=== PATIENT | female | born 1985 | race Caucasian/White ===

== ENCOUNTER 2017-11-18 04:01 | Inpatient (IN) | payer MEDICAID ==
[2017-11-18 04:21] LABS: APPEARANCE,URINE CLEAR; BILIRUBIN,URINE NEGATIVE (NEGATIVE); COLOR,URINE STRAW; GLUCOSE, URINE NEGATIVE (NEGATIVE); KETONES,URINE NEGATIVE (NEGATIVE); LEUKOCYTE ESTERASE,URINE NEGATIVE (NEGATIVE); NITRITE,URINE NEGATIVE (NEGATIVE); PROTEIN,URINE NEGATIVE (NEGATIVE); URINE SPECIFIC GRAVITY 1.003; UROBILINOGEN,URINE NEGATIVE mg/dL (<2.0)
[2017-11-18 04:37] LABS: URINE AMPHETAMINES SCREEN NEGATIVE; URINE BARBITURATES SCREEN NEGATIVE; URINE BENZODIAZEPINES SCREEN NEGATIVE; URINE COCAINE SCREEN NEGATIVE; URINE MARIJUANA (THC) SCREEN NEGATIVE; URINE METHADONE SCREEN NEGATIVE; URINE PHENCYCLIDINE SCREEN NEGATIVE
[2017-11-18] MEDS ORDERED: LIDOCAINE 1% INJ-PF (10 MG/ML) 30 ML SDV ONE (05:38)
[2017-11-18] MEDS ORDERED: MISOPROSTOL 0.2 MG TABLET ONE (05:38)
[2017-11-18] MEDS ORDERED: OXYTOCIN/NORMAL SALINE 0 UNIT/0 ML RTUINJ ONE (05:39)
[2017-11-18 06:37] LABS: ABSOLUTE BASOPHILS # (AUTO) 0.1 10^3/uL (0.0-0.2); ABSOLUTE EOSINOPHILS # (AUTO) 0.2 10^3/uL (0.0-0.6); ABSOLUTE LYMPHOCYTES (AUTO) 2.1 10^3/uL (0.5-4.7); ABSOLUTE MONOCYTES (AUTO) 1.1 10^3/uL (0.1-1.4); BASOPHILS % (AUTO) 0.6 % (0-2); EOSINOPHILS % (AUTO) 1.1 % (0-6); LYMPHOCYTES % (AUTO) 14.7 % (13-45); MEAN CORPUSCULAR HEMOGLOBIN 30.7 pg (27.0-33.4); MEAN CORPUSCULAR HGB CONC 34.3 g/dL (32.0-36.0); MEAN CORPUSCULAR VOLUME 90 fl (80-97); MONOCYTES % (AUTO) 7.6 % (3-13); PLATELET COUNT 341 10^3/uL (150-450); RED CELL DISTRIBUTION WIDTH 13.2 % (11.5-14.0); TOTAL CELLS COUNTED % (AUTO) 100 %; WHITE BLOOD COUNT 14.5 10^3/uL (4.0-10.5)
--- NOTE | 2017-11-18 07:41 | Admission Physical ---
Datetime Report Generated by CPN: 11/18/2017 07:41 CURRENT ADMISSION Chief Complaint: Uterine Contractions Indication for Induction: Not Applicable Admit Impression : Term, Intrauterine ; Active Labor Admit Plan: Admit to Unit; Initiate Labor Protocol ALLERGIES Medication Allergies: Yes Medication Allergies: Penicillins/[place] (11/18/2017) Latex: No Latex Allergies OBSTETRICAL HISTORY EDC: 11/30/2017 00:00 : 4 Para: 2 Term: 1 : 1 Cesareans: 0 Gestational Diabetes: No Rh Sensitization: No Incompetent Cervix: No YUMIKO: No Infertility: No ART Treatment: No Uterine Anomaly: No IUGR: No Hx Previous C/S: No Macrosomia: No Hx Loss/Stillborn: No PIH: No Hx : No Placenta Previa/Abruption: No Depression/PP Depression: No PTL/PROM: No Post Hemorrhage: No Current Procedures: Ultrasound; NST Obstetrical History Comments: g1-EAB g2- at 33 weeks 4lbs 5oz female bill bernardo sequence no 22 with abnormality g3 40 weeks 7lbs 5oz female g4- current SEE RECORDS Alcohol: No Marijuana : No Cocaine: No Other Illicit Drugs: No Cigarettes: Never Smoker. [id number] MEDICAL HISTORY Diabetes: No Blood Transfusion: No Pulmonary Disease (Asthma, TB): No Breast Disease: No Hypertension: No Ag Service Manager Surgery: No Heart Disease: No Hosp/Surgery: No Autoimmune Disorder: No Anesthetic Complications: No Kidney Disease: No Abnormal Pap Smear: No Neuro/Epilepsy: No Psychiatric Disorders: No Other Medical Diseases: No Hepatitis/Liver Disease: No Significant Family History: No Varicosities/Phlebitis: No Trauma/Violence : No Thyroid Dysfunction: Yes Medical History Comments: history of hypothyroidism but has resolved INFECTIOUS HISTORY Gonorrhea: No Genital Herpes: No Chlamydia: No Tuberculosis: No Syphilis: No Hepatitis: No HIV/AIDS Exposure: No Rash or Viral Illness: No HPV: No PHYSICAL EXAM General: Normal HEENT: Normal Neurologic: Normal Thyroid: Normal Heart: Normal Lungs: Normal Breast: Normal Back: Normal Abdomen: Normal Genitourinary Exam: Normal Extremities: Normal DTRs: Normal Pelvic Type: Adequate Vital Signs: Reviewed VAGINAL EXAM Dilatation: 6 Effacement: 75 Station: -1 MEMBRANES Pooling: Negative Membranes: Intact FETUS A EGA: 38.2 Monitoring: External US FHR- Baseline: 130 Variability: Moderate 6-25bpm Accelerations: 15X15 Decelerations: None FHR Category: Category I Estimated Weight (gm): 3400 Presentation: Vertex PLANS FOR LABOR AND DELIVERY Labor and Delivery: None Pain Management: Natural Feeding Preference: Breast Benefit of Breast Feed Discussed: Yes Circumcision: N/A INFORMED CONSENT Signature: with User ID: [email or web address]
[2017-11-18] MEDS ORDERED: OXYTOCIN/NORMAL SALINE 20 UNIT/1,000 ML RTUINJ ONE (08:59)
--- NOTE | 2017-11-18 09:03 | L&D Progress Notes ---
PROGRESS NOTES Datetime Report Generated by CPN: 11/18/2017 09:03 PROGRESS NOTE Impression: Arrest of Dilatation/Descent Procedures: Sterile Vag Exam Plan: Augmentation Vital Signs : Reviewed VAGINAL EXAM Dilatation: 6 Effacement: 100 Station: -1 MEMBRANES Pooling: Negative Membranes: Intact FETUS A FHR - Baseline: 140 Monitoring: External US Variability: Moderate 6-25bpm FHR Category: Category II FHR Comments: few subtle late decels with moderate variability : 38.2 Estimated Weight (gm): 3400 Presentation: Vertex SIGNATURE SIGNATURE: [id number];[id number] SIGNATURE: [id number] Assignment: Iram Martinez MD Signature: with User ID: [email or web address] : with User ID: [email or web address]
[2017-11-18] MEDS ORDERED: LIDOCAINE 2% JELLY 5 ML TUBE ONE (13:05)
--- NOTE | 2017-11-18 15:00 | Delivery Summary ---
Del Sum A-C Datetime Report Generated by CPN: 11/18/2017 14:59 DELIVERY PERSONNEL DELIVERY PERSONNEL: [id number] Delivery Doctor:: Tara Fitzgerald CNM Labor and Delivery Nurse:: Suhas Walker RN Nursery Nurse:: Reina Cline RN Admission Specialist/SLEEP MANAGER: Rosa Elena Gar, ST Admission Specialist/SLEEP MANAGER: Aure Goetz, STRIPPER AND TAPER Additional Personnel: : Sonam Johnson RN MATERNAL INFORMATION Delivery Anesthesia: None Medications After Delivery: Pitocin Bolus-Please Comment Maternal Complications: None Provider Comments: SVDVF over intact perineum. Infant vigorous, to mothers abd for skin to skin. Cord clamped and cut per FOB, 3VC noted. Placenta intact via watkins, FF immediately with minimal bleeding. Apars 8,9. Mother and stable upon leaving the room. LABOR SUMMARY EDC: 11/30/2017 00:00 No. Babies in Womb: 1 Attempted: No Labor Anesthesia: None LABOR INFORMATION Reason for Induction: Not Applicable Onset of Labor: 11/18/2017 04:16 Complete Dilatation: 11/18/2017 12:23 Other Ripening Agents: n/a Oxytocin: Augmentation Group B Beta Strep: neg Antibiotics # of Doses: 0 Antibiotics Time of Last Dose: n/a Name of Antibiotic Given: n/a Steroids Given: None Reason Steroids Not Administered: Not Applicable Other Reason Not Administered: n/a MEMBRANES Membranes Rupture Method: Spontaneous Rupture of Membranes: 11/18/2017 11:04 Length of Rupture (hr): 1.90 Amniotic Fluid Color: Light Meconium Amniotic Fluid Amount: Small Amniotic Fluid Odor: Normal STAGES OF LABOR Stage 1 hr: 8 Stage 1 min: 7 Stage 2 hr: 0 Stage 2 min: 35 Stage 3 hr: 0 Stage 3 min: 17 Total Time in Labor hr: 8 Total Time in Labor min: 59 VAGINAL DELIVERY Episiotomy: None Laceration #1: Periurethral Laceration Extension #1: First Degree Other Laceration: right labial Laceration Repair: Yes Laceration Repair Note: lidocaine jelly and 1%lidocaine 3.0 chromic skin reapproximated rt labia/periuretha CSECTION DELIVERY Primary Indication: N/A Secondary Indication: N/A BABY A INFORMATION Infant Delivery Date/Time: 11/18/2017 12:58 Method of Delivery: Vaginal Born in Route : No : N/A Forceps: N/A Vacuum Extraction: N/A Shoulder Dystocia : No PRESENTATION/POSITION BABY A Presentation: Cephalic Cephalic Presentation: Vertex Vertex Position: Left Occipital Anterior Breech Presentation: N/A PLACENTA INFORMATION BABY A Placenta Delivery Time : 11/18/2017 13:15 Placenta Method of Delivery: Spontaneous Placenta Status: Delivered SCORES BABY A Heart Rate 1 min: >100 bpm Resp Effort 1 min: Good Cry Reflex Irritability 1 min: Cough or Sneeze or Pulls Away Muscle Tone 1 min: Active Motion Color 1 min: Blue/Pale Resuscitation Effort 1 min: Tactile Stimulation SCORE 1 MIN: 8 Heart Rate 5 min: >100 bpm Resp Effort 5 min: Good Cry Reflex Irritability 5 min: Cough or Sneeze or Pulls Away Muscle Tone 5 min: Active Motion Color 5 min: Body [place], Extremities Blue Resuscitation Effort 5 min: Tactile Stimulation SCORE 5 MIN: 9 INFANT INFORMATION BABY A Gestational Age at Delivery: 38.2 Gestational Status: Early Term- 37- 38.6 Weeks Infant Outcome : Liveborn Infant Condition : Stable Infant Sex: Female IDENTIFICATION BABY A Verification Date/Time: 11/18/2017 13:28 ID Band Number: [id number] Mother's Name Verified: Yes Infant RN Verifying : D Bellavance RNC Additional Verifying Personnel: C [place] RN WEIGHT/LENGTH BABY A Infant Birthweight (gm): 3080 Infant Weight (lb): 6 Weight (oz): 13 Infant Length (in): 19.50 Infant Length (cm): 49.53 CORD INFORMATION BABY A No. Cord Vessels: 3 Nuchal Cord : Around Neck x1, Loose Cord Blood Taken: Yes-For Storage (Mom's Blood type +) Suction: None ASSESSMENT BABY A Skin to Skin: Yes Skin to Skin Time (min): 90 BABY B INFORMATION : N/A SIGNATURES Assignment: Iram Martinez MD Signature: with User ID: [email or web address] : with User ID: [email or web address] : I was personally available for consultation and serving as supervising physician for the MLP.
[2017-11-18] MEDS ORDERED: ZOLPIDEM TARTRATE 5 MG TABLET PO PRN (15:17)
[2017-11-18] MEDS ORDERED: MEASLES,MUMPS&RUBELLA VACC/PF 0.5 ML VIAL SUBCUT PRN (15:17)
[2017-11-18] MEDS ORDERED: BENZOCAINE/MENTHOL AEROSOL SPRAY 56 ML TOP PRN (15:17)
[2017-11-18] MEDS ORDERED: DIPH/PERTUSS(ACELL)/TETANUS VAC/PF 0.5 ML SYR (>=10YO) IM PRN (15:17)
[2017-11-18] MEDS ORDERED: OXYTOCIN/NORMAL SALINE 20 UNIT/1,000 ML RTUINJ IV PRN (15:17)
[2017-11-18] MEDS ORDERED: DIBUCAINE 1% OINTMENT 28 GM TP PRN (15:17)
[2017-11-18] MEDS ORDERED: IBUPROFEN 800 MG TABLET PO ONE (15:30)
[2017-11-18] MEDS: DOCUSATE SODIUM 100 MG CAPSULE PO SCH (18:13)
[2017-11-18] MEDS: FERROUS SULFATE 325 MG TABLET PO SCH (18:13)
[2017-11-18] MEDS: IBUPROFEN 800 MG TABLET PO SCH (21:10)
[2017-11-19 07:23] LABS: HEMATOCRIT 31.8 % (36.0-47.0); HEMOGLOBIN 10.7 g/dL (12.0-15.5); MEAN CORPUSCULAR HEMOGLOBIN 30.8 pg (27.0-33.4); MEAN CORPUSCULAR HGB CONC 33.8 g/dL (32.0-36.0); MEAN CORPUSCULAR VOLUME 91 fl (80-97); PLATELET COUNT 300 10^3/uL (150-450); RED BLOOD COUNT 3.48 10^6/uL (3.72-5.28); RED CELL DISTRIBUTION WIDTH 13.4 % (11.5-14.0); WHITE BLOOD COUNT 18.8 10^3/uL (4.0-10.5)
[2017-11-19] MEDS: IBUPROFEN 800 MG TABLET PO SCH ×3 (08:09→22:00)
--- NOTE | 2017-11-19 08:41 | PDOC PROGRESS REPORT ---
Subjective-OB Progress Note for:: 11/19/17 Physical Exam (OB) Vital Signs: Temp Pulse Resp BP Pulse Ox 98.0 F 65 18 104/54 L 100 11/18/17 19:35 11/18/17 19:35 11/18/17 19:35 11/18/17 19:35 11/18/17 19:35 Intake & Output 11/18/17 11/19/17 11/20/17 06:59 06:59 06:59 Intake Total 600 Balance 600 Weight 77.5 kg - PIH/Pre-Eclampsia DTR's: 2 + Clonus: Negative Headache: Absent Epigastric Pain: No Visual Changes: No - Lochia Lochia Amount: Scant < 10 ml Lochia Color: Rubra/Red - Abdomen Description: Soft, Round Hernia Present: No Bowel Sounds: Normoactive Flatus Presence: Present Stool: No Fundal Description: Firm, Midline Fundal Height: u/u - u/2 Objective-Diagnostic Laboratory: 11/19/17 06:50 11/19/17 06:50 WBC 18.8 H RBC 3.48 L Hgb 10.7 L Hct 31.8 L MCV 91 MCH 30.8 MCHC 33.8 RDW 13.4 Plt Count 300
[2017-11-19] MEDS: PRENATAL VITAMIN W DHA CAPSULE PO SCH (10:11)
[2017-11-19] MEDS: SENNOSIDES/DOCUSATE 8.6-50 MG 1 EACH TABLET PO SCH (10:11)
[2017-11-19] MEDS: FERROUS SULFATE 325 MG TABLET PO SCH ×2 (10:12→18:21)
[2017-11-19] MEDS: DOCUSATE SODIUM 100 MG CAPSULE PO SCH ×2 (10:12→18:21)
[2017-11-19 20:28] VITALS: BP 111/69
[2017-11-20] MEDS: IBUPROFEN 800 MG TABLET PO SCH (06:01)
[2017-11-20 07:33] LABS: HEMATOCRIT 31.9 % (36.0-47.0); HEMOGLOBIN 10.8 g/dL (12.0-15.5); MEAN CORPUSCULAR HEMOGLOBIN 30.9 pg (27.0-33.4); MEAN CORPUSCULAR HGB CONC 33.9 g/dL (32.0-36.0); MEAN CORPUSCULAR VOLUME 91 fl (80-97); PLATELET COUNT 292 10^3/uL (150-450); RED CELL DISTRIBUTION WIDTH 13.5 % (11.5-14.0); WHITE BLOOD COUNT 14.8 10^3/uL (4.0-10.5)
[2017-11-20] MEDS: SENNOSIDES/DOCUSATE 8.6-50 MG 1 EACH TABLET PO SCH (10:08)
[2017-11-20] MEDS: PRENATAL VITAMIN W DHA CAPSULE PO SCH (10:08)
[2017-11-20] MEDS: FERROUS SULFATE 325 MG TABLET PO SCH (10:08)
[2017-11-20] MEDS: DOCUSATE SODIUM 100 MG CAPSULE PO SCH (10:08)
[2017-11-20] MEDS ORDERED: MEDROXYPROGESTERONE ACET INJ 150 MG/1 ML VIAL IM ONE (10:30)
--- NOTE | 2017-11-20 10:42 | PDOC DISCHARGE SUMMARY ---
Final Diagnosis Discharge Date: 11/20/17 Discharge Data - Discharge Medication Home Medications: -U Capsule 1 tab PO DAILY 07/19/11 Procedures: NST - Diagnosis Test Laboratory: Temp Pulse Resp BP Pulse Ox 97.8 F 60 18 111/69 98 11/20/17 10:15 11/20/17 10:15 11/20/17 10:15 11/19/17 19:36 11/20/17 10:15 11/18/17 11/18/17 11/19/17 04:06 06:05 06:50 RBC 3.90 3.48 L Hgb 12.0 10.7 L Hct 35.0 L 31.8 L Urine Opiates Screen NEGATIVE 11/20/17 07:12 RBC 3.50 L Hgb 10.8 L Hct 31.9 L Urine Opiates Screen - Discharge information/Instructions Discharge Activity: Activity As Tolerated, Pelvic Rest, No tub bath Discharge Diet: Regular Disposition: HOME, SELF-CARE Follow up with: [facility] in: 4, Weeks
== END 2017-11-20 11:40 | disposition home or self-care (01) | DRG 775 ==
LOC: LC 04:01 → LR 05:35 → 2S 15:33
PROVIDERS: ADMIT Obstetrics & Gynecology; ATTEND Obstetrics & Gynecology
PROC: 10E0XZZ Delivery of Products of Conception, External Approach (ICD-10-PCS; principal; 2017-11-18)
PROC: 0UQMXZZ Repair Vulva, External Approach (ICD-10-PCS; 2017-11-18)
PROC: 4A1HXCZ Monitoring of Products of Conception, Cardiac Rate, External Approach (ICD-10-PCS; 2017-11-18)
DX: O62.1 Secondary uterine inertia (principal); O71.82 Other specified trauma to perineum and vulva; O77.0 Labor and delivery complicated by meconium in amniotic fluid; O69.81X0 Labor and delivery complicated by cord around neck, without compression, not applicable or unspecified; Z88.0 Allergy status to penicillin; Z3A.38 38 weeks gestation of pregnancy; Z37.0 Single live birth
CPT/HCPCS: 36415; 80307; 81005; 85025; 85027; 86592; 86850; 86900; 86901; J1050; J2590; J3490